=== PATIENT | male | born 1980 | race Hispanic/Latino ===

== ENCOUNTER 2017-01-02 16:16 | Observation (INO) | payer OTHER ==
[~2017-01-02] VITALS: Ht 185.4 cm; Wt 90.0 kg
[2017-01-02 16:39] LABS: BASO % 0.3 % (0.0-1.0); EOS # 0.3 K/mm3 (0.0-0.50); LARGE UNSTAINED CELL # 0.2 K/mm3 (0.0-0.4); LARGE UNSTAINED CELL % 3.5 % (0.0-4.0); LYMPH # 2.3 K/mm3 (1.5-4.5); LYMPH % 32.5 % (24.0-44.0); MEAN CORPUSCULAR HEMOGLOBIN 31.7 pg (27.0-33.0); MEAN CORPUSCULAR HGB CONC 35.4 g/dl (32.0-36.5); MEAN CORPUSCULAR VOLUME 89.7 fl (80.0-96.0); MONO # 0.4 K/mm3 (0.0-0.8); MONO % 5.4 % (0.0-5.0); NEUTROPHILS # 3.8 K/mm3 (1.8-7.7); NEUTROPHILS % 54.3 % (36.0-66.0); PLATELET COUNT, AUTOMATED 156 k/mm3 (150-450); RED CELL DISTRIBUTION WIDTH 11.5 % (11.5-14.5)
[2017-01-02 16:57] LABS: ANION GAP 2 MEQ/L (8-16); BLOOD UREA NITROGEN 18 MG/DL (7-18); CARBON DIOXIDE LEVEL 32 MEQ/L (21-32); CHLORIDE LEVEL 105 MEQ/L (98-107); CREATININE FOR GFR 0.93 MG/DL (0.70-1.30); GLOMERULAR FILTRATION RATE > 60.0 (>60); GLUCOSE, FASTING 88 MG/DL (70-105); POTASSIUM SERUM 4.1 MEQ/L (3.5-5.1); SODIUM LEVEL 139 MEQ/L (136-145)
[2017-01-02] MEDS ORDERED: NS 500 ML IV ONE (17:00)
[2017-01-02] MEDS ORDERED: ISOVUE-370 76% 100ML VIAL (Q9967) As Ordered ONE (17:06)
[2017-01-02 17:32] LABS: METHADONE URINE NEGATIVE (NEGATIVE)
--- NOTE | 2017-01-02 18:08 | REP ---
PORTABLE CHEST, SINGLE VIEW: There is no evidence of acute infiltrate. No pleural effusion is seen. The heart is normal in size. The mediastinal silhouette is unremarkable. The visualized osseous structures are intact. IMPRESSION: No acute pulmonary disease. Signed by Marcos French MD 01/03/2017 05:35 P
--- NOTE | 2017-01-02 18:25 | REP ---
HISTORY: Cardiac symptoms and palpitations. COMPARISON: None. CONTRAST: 100 mL of Isovue-370 There is excellent visualization of the pulmonary arterial vasculature. There are no focal filling defects present that would be considered consistent with pulmonary emboli. There are no pleural or pericardial effusions. There is no mediastinal or hilar adenopathy. The imaged upper abdomen and imaged osseous structures are within normal limits. Evaluation of the lung orellana show no abnormal nodules, masses or opacities. There is an incidental calcified granuloma in the left lower lobe. IMPRESSION: No acute disease with findings as described above. Signed by Taye Collins DO 01/02/2017 06:29 P
--- NOTE | 2017-01-02 18:32 | ECGEPIP ---
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
[2017-01-02] MEDS ORDERED: ONDANSETRON 4MG/2ML VIAL (J2405) IV ONE (19:00)
[2017-01-02] MEDS ORDERED: ENOXAPARIN 100MG/1ML SYRINGE (J1650) SC ONE (19:15)
[2017-01-02] MEDS: FLECAINIDE 50MG TABLET PO SCH (19:24)
[2017-01-02] MEDS ORDERED: DIPH25CA PO (21:58)
[2017-01-02] MEDS ORDERED: LORA10TA2 PO (21:58)
[2017-01-02] MEDS ORDERED: FLECAINIDE 50MG TABLET PO ONE (22:30)
[2017-01-02] MEDS ORDERED: LR 1,000 ML IV SCH (22:30)
[2017-01-02] MEDS ORDERED: LORATADINE 10 MG TAB PO PRN (22:30)
[2017-01-02 23:16] VITALS: BP 139/63
[2017-01-03 04:00] VITALS: BP 131/74
[2017-01-03 05:20] LABS: MEAN CORPUSCULAR HEMOGLOBIN 30.7 pg (27.0-33.0); MEAN CORPUSCULAR HGB CONC 33.8 g/dl (32.0-36.5); MEAN CORPUSCULAR VOLUME 90.8 fl (80.0-96.0); RED CELL DISTRIBUTION WIDTH 11.9 % (11.5-14.5); WHITE BLOOD COUNT 5.1 K/mm3 (4.0-10.0)
[2017-01-03 05:24] LABS: INR 1.07
[2017-01-03 05:31] LABS: ANION GAP 5 MEQ/L (8-16); BLOOD UREA NITROGEN 18 MG/DL (7-18); CALCIUM LEVEL 8.6 MG/DL (8.5-10.1); CARBON DIOXIDE LEVEL 28 MEQ/L (21-32); CHLORIDE LEVEL 107 MEQ/L (98-107); CREATININE FOR GFR 1.03 MG/DL (0.70-1.30); GLOMERULAR FILTRATION RATE > 60.0 (>60); GLUCOSE, FASTING 98 MG/DL (70-105); POTASSIUM SERUM 3.9 MEQ/L (3.5-5.1); SODIUM LEVEL 140 MEQ/L (136-145)
[2017-01-03] MEDS ORDERED: FLEC50TA PO ×2 (07:38→12:51)
[2017-01-03] MEDS ORDERED: EC-881TA PO ×2 (07:41→12:52)
[2017-01-03 08:00] VITALS: BP 127/76
[2017-01-03] MEDS: FLECAINIDE 50MG TABLET PO SCH (08:39)
[2017-01-03] MEDS ORDERED: ASPIRIN 81 MG ENTERIC TAB PO SCH (09:00)
[2017-01-03 13:40] LABS: CHOLESTEROL LEVEL 167 MG/DL (<200); TRIGLYCERIDES LEVEL 197 MG/DL (<150)
--- NOTE | 2017-01-03 15:04 | HPE ---
DATE OF ADMISSION: 01/02/2017 PR[place] CARE [place] CHIEF COMPLAINT: Palpitations. 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 As per the patient at about noontime today he felt an episode of palpitations, had an exercise strap on his chest, had a heart rate of 124, and at about 3:00 p.m., the patient had another episode. [place], [place] found to be in atrial fibrillation with rapid ventricular response and subsequently sent to the hospital. As per the patient, he was not doing any strenuous activity and has no previous symptoms. Denies any chest pain, pressure or discomfort. Denies taking any drugs or [id number] medication that is abnormal from before. The patient denies family history of heart disease. He does not see a heart doctor. On presentation to the emergency department (ED), the patient is in atrial fibrillation with a ventricular rate of 71. Dr. Knowles has been called by ED provider. He recommended one dose of flecainide which was given and a dose of Lovenox and the patient remained to be in atrial fibrillation, asymptomatic with no palpitations with ventricular rate of 60-70. Subsequently, hospitalist was called for consultation. Dr. Knowles recommended one more dose of flecainide. The patient denies any chest pain, pressure or discomfort. Denies any fevers or chills. Currently, he has no palpitations. Denies any weight loss or weight gain. He does report drinking caffeine, coffees about 6-8 cups per day for the past 38 years. ALLERGIES: PERCOCET with rash. PAST MEDICAL HISTORY: None. PAST SURGICAL HISTORY: Reported a chest wall lesion that was removed under the nipple, reported hand surgery in the past. SOCIAL HISTORY: Drinking about six cans of beer in an entire months. Denies smoking. Drinking about 6-8 cups of coffee a day for the past 38 years. No illicit drug use. FAMILY HISTORY: Denies family history of coronary artery disease. REVIEW OF SYSTEMS: Other than palpitations that was mentioned above, all other review of systems is negative. HOME MEDICATIONS: - Benadryl 25 mg by mouth daily as needed - Claritin 10 mg by mouth daily as needed PHYSICAL EXAMINATION: VITAL SIGNS: Temperature 98.3, pulse 60, respiratory rate 20, blood pressure 122/77, pulse oximetry 97% on room air. GENERAL: The patient is alert and oriented times three in no acute distress. HEENT: Normocephalic, atraumatic. PULMONARY: Bilaterally clear to auscultation. CARDIOVASCULAR: Irregular, non-tachycardia, S1, S2. ABDOMEN: Soft, nontender, positive bowel sounds. EXTREMITIES: No edema of bilateral lower extremities. NEUROLOGIC: No focal deficits. EKG shows atrial fibrillation with a ventricular rate of 71. LABORATORY DATA: WBC 7, hemoglobin and hematocrit 15.5/43.7, platelets 156. Chemistry: Sodium 139, potassium 4.1, chloride 105, bicarbonate 32, BUN 18, creatinine 0.7, cardiac enzymes negative times one, TSH 1.39. Urine toxicology has been negative. CT angiogram negative for PE. 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 1. New onset atrial fibrillation. Cardiology, Dr. Knowles, has been consulted. Flecainide 50 mg by mouth two doses has been given, one dose of Lovenox has been given as per Dr. Knowles. IV fluids overnight, telemetry monitoring, thyroid function appreciated, cardiac enzymes, echocardiogram. Cardiology consulted. We will consider direct current cardioversion versus chemical cardioversion. As per cardiology, okay to continue diet for now. Final decision will be made by cardiology tomorrow in the morning. Urine toxicology appreciated. 2. Deep vein thrombosis (DVT) prophylaxis. Early ambulation, sequential compression device. The patient has received one treatment dose of Lovenox. The patient has CHADS VASc score of 0. DISPOSITION: Pending final cardiology recommendation.
--- NOTE | 2017-01-03 21:40 | ECGEPIP ---
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
--- NOTE | 2017-01-04 14:19 | DSES ---
DATE OF ADMISSION: 01/02/2017 DATE OF DISCHARGE: 01/03/2017 CONSULTATIONS DURING ADMISSION: Dr. John Knowles, [facility], Cardiology. PRIMARY DISCHARGE DIAGNOSIS: Atrial fibrillation. DISCHARGE MEDICATIONS: - enteric coated aspirin 81 mg daily - flecainide 50 mg daily - loratadine 10 mg daily - diphenhydramine 25 mg daily as needed. PROCEDURES DURING ADMISSION: Echocardiogram. HOSPITAL COURSE: 36-year-old male who presented to the emergency room with complaints of palpitations without syncope. EKG showed atrial fibrillation ventricular rate of 71. The patient was with no delta waves. TSH was within normal limits at 1.39. CT angio to rule out pulmonary embolus (PE) shows no acute findings. The patient was admitted to telemetry. Dr. John Knowles was consulted and recommended flecainide. He converted to sinus rhythm at 3:30 a.m. He was kept on aspirin 81 mg daily, flecainide 50 mg daily. Blood pressure is well maintained at 127 to 139 systolic. Echocardiogram performed pending official reading. The patient is discharged in stable condition to followup with Dr. John Knowles as an outpatient within 7 days of discharge to determine adjustment of the flecainide versus cardiac ablation and referral to an elective [facility] in [place]. LABORATORY DATA ON DISCHARGE: White count 5.1, hemoglobin 14, hematocrit 42, platelet count 159, sodium 140, potassium 3.9, chloride 107, bicarbonate 28, BUN 18, creatinine 1.03, glucose 98, troponin 0.07, MB fraction 3, total CK 182, TSH 1.39, BNP 7.5. Urine tox screen is negative. 01/02/2017 Imaging Studies: CT angio negative for PE. Chest x-ray, no acute disease. Time spent on discharge: 30 minutes.
--- NOTE | 2017-01-05 20:08 | ECHO ---
DATE OF PROCEDURE: 01/05/2017 REFERRING PROVIDER: Dr. Any Mena PATIENT LOCATION: Room 3211 REASON FOR ECHOCARDIOGRAM: Abnormal EKG. 2D MEASUREMENTS: IVS: 1.0 cm LV: 4.7 cm LVPW: 1.1 cm LA: 3.5 cm Aorta: 3.2 cm IVC: 2.3 cm DOPPLER MEASUREMENTS: Peak velocity across the aortic valve: 1.2 m/s Peak velocity across the LVOT: 0.88 m/s Mitral E: 0.53 Mitral A: 0.46 Ratio 1.2 Maximum tricuspid valve velocity: 1.7 m/s 2D COMMENTS: 1. Normal left ventricular size, wall thickness and normal global left ventricular systolic function. The estimated global left ventricular systolic ejection fraction is 65% to 70%. 2. Normal left atrium. Normal right atrium and right ventricle. 3. The atrial septum appeared to be normal without evidence of defect or shunt. 4. Normal aortic root. 5. No pericardial effusion seen. 6. Normal aortic valve. The mitral valve leaflets appear to be normal. Normal tricuspid valve. The pulmonic valve and proximal pulmonary artery branches appear to be normal. 7. The inferior vena cava was mildly enlarged, central venous pressure may be mildly elevated or it might be normal at this age. DOPPLER: It detects mild mitral regurgitation, trace to mild tricuspid regurgitation. The calculated pulmonary artery systolic pressure was normal, less than 30 mmHg. Assessment of the left ventricular diastolic function was normal. IMPRESSION: 1. Normal global left ventricular systolic and diastolic function. 2. Mild mitral regurgitation. Left atrium appear to be normal in size. No mitral valve prolapse. 3. Trace to mild tricuspid regurgitation with a normal calculated pulmonary artery systolic pressure. 4. The inferior vena cava was mildly enlarged at 2.3 cm. [facility]
--- NOTE | 2017-01-06 16:34 | DSES ---
DATE OF ADMISSION: 01/02/2017 DATE OF DISCHARGE: 01/03/2017 ADDENDUM: Echocardiogram performed on 01/05/[address] John Knowles shows normal left ventricular size, wall thickness normal. Global left ventricular systolic function. Ejection fraction of 65% to 70%. Normal left atrium and normal right atrium and left ventricle. No defect or shunt in atrial septum. Normal aortic root. No pericardial effusion. Normal aortic valve. Mitral valve leaflets appear normal. Normal tricuspid valve. Pulmonic valve and proximal pulmonary artery branches appear to be normal. Inferior vena cava with mildly enlarged central venous pressure, mildly elevated or it may be normal at his age. IMPRESSION: 1. Normal global left ventricular systolic and diastolic function. 2. Mild mitral regurgitation. Left atrium appear to be normal in size. Mitral valve prolapse. 3. Trace to mild tricuspid regurgitation with normal calculated pulmonary artery systolic pressure. 4. Inferior vena cava was mildly enlarged at 2.3 cm.
== END 2017-01-03 13:16 | disposition home or self-care (01) ==
LOC: EDBD 16:16 → M ED 16:16 → M ED INP 22:29 → M PCU 23:11
PROVIDERS: ADMIT Hospitalist; ATTEND General Practice
DX: I48.91 Unspecified atrial fibrillation (principal); R00.2 Palpitations; I34.8 Other nonrheumatic mitral valve disorders; Z79.899 Other long term (current) drug therapy
CPT/HCPCS: 36415; 71010; 71275; 80048; 80061; 80307; 82550; 82553; 83735; 83880; 84443; 85025; 85027; 85610; 93005; 93041; 94760; 96360; 96361; 96372; 99285; J1650; J2405; Q9967